=== PATIENT | male | born 1995 | race Caucasian/White ===

== ENCOUNTER 2019-08-15 19:16 | Emergency (ER) | payer BC, MEDICAID ==
--- NOTE | 2019-08-15 19:56 | EDM.PDOC ---
ED HPI GENERAL MEDICAL PROBLEM - General Chief Complaint: Back Pain or Injury Stated Complaint: LOWER BACK PAIN Time Seen by Provider: 08/15/19 19:46 - History of Present Illness INITIAL COMMENTS - FREE TEXT/NARRATIVE: 23-year-old male presents the emergency room with back pain. This started this morning the patient was put on his pants and developed pain in his low back. No other associated trauma. The patient has had problems with his low back in the past there is always been concerned for an old vertebral fracture that is been identified on prior x-rays. But the patient has not had any trauma to his back in quite some time. Patient is no loss of bowel or bladder control no numbness or tingling down his legs. Treatments HARBORMASTER: Reports: NSAIDS Other Treatments HARBORMASTER: Motrin around 1100- "3 of the tablets" Lower Back Pain Score (Numeric/FACES): 6 - Related Data Allergies Allergy/AdvReac Type Severity Reaction Status Date / Time No Known Allergies Allergy Verified 08/15/19 19:33 Home Meds: Home Meds Cyclobenzaprine [Flexeril] 10 mg PO BEDTIME #5 tab 08/15/19 [Rx] Naproxen [Naprosyn] 500 mg PO Q12HR #30 tab 08/15/19 [Rx] Past Medical History Musculoskeletal History: Reports: Back Pain, Chronic - Infectious Disease History Infectious Disease History: Reports: Chicken Pox - Past Surgical History HEENT Surgical History: Reports: Adenoidectomy, Tonsillectomy Social & Family History - Family History Family Medical History: Noncontributory - Tobacco Use Smoking Status *Q: Never Smoker - Caffeine Use Caffeine Use: Reports: Coffee, Energy Drinks - Recreational Drug Use Recreational Drug Use: No ED ROS GENERAL - Review of Systems Review Of Systems: See Below Constitutional: Reports: No Symptoms HEENT: Reports: No Symptoms Respiratory: Reports: No Symptoms Cardiovascular: Reports: No Symptoms GI/Abdominal: Reports: No Symptoms : Reports: No Symptoms Musculoskeletal: Reports: Back Pain ED EXAM,LOWER BACK PAIN/INJURY - Physical Exam Exam: See Below Exam Limited By: No Limitations General Appearance: Alert, No Apparent Distress Head: Atraumatic, Normocephalic Neck: Normal Inspection, Supple, Non-Tender, Full Range of Motion. No: Limited Range of Motion, Lymphadenopathy (L), Lymphadenopathy (R), Tender Lateral, Tender Midline, Thyromegaly Respiratory/Chest: No Respiratory Distress, Lungs Clear, Normal Breath Sounds Cardiovascular: Regular Rate, Rhythm, No Edema, No Murmur GI/Abdominal: Normal Bowel Sounds, Soft, Non-Tender Back Exam: Normal Inspection, Other (His discomfort is in the LS area. Straight leg raises are normal). No: CVA Tenderness (R), Muscle Spasm, Vertebral Tenderness Neurological: Alert, Normal Mood/Affect Course - Vital Signs Last Recorded V/S: Last Vital Signs Temp 36.8 C 08/15/19 19:28 Pulse 107 H 08/15/19 19:28 Resp 18 08/15/19 19:28 BP 138/95 H 08/15/19 19:28 Pulse Ox 100 08/15/19 19:28 - Re-Assessments/Exams Free Text/Narrative Re-Assessment/Exam: 08/15/19 20:07 Lumbosacral strain will treat with nonsteroidals and a gentle dose of muscle relaxants he will receive a dose of Toradol before he leaves Departure - Departure Time of Disposition: 20:10 Disposition: Home, Self-Care 01 Clinical Impression: Lumbosacral strain - Discharge Information Prescriptions: Naproxen [Naprosyn] 500 mg PO Q12HR #30 tab Cyclobenzaprine [Flexeril] 10 mg PO BEDTIME #5 tab Additional Instructions: Return to the emergency room with any questions or worsening symptoms. Follow-up in the hospital clinic as needed [id number]. Take the Flexeril as directed. Use the Naprosyn for at least 10 days and then as needed. Sepsis Event Note - Evaluation Sepsis Screening Result: No Definite Risk - Focused Exam Vital Signs: Vital Signs Temp Pulse Resp BP Pulse Ox 08/15/19 19:28 36.8 C 107 H 18 138/95 H 100 Date Exam was Performed: 08/15/19 Time Exam was Performed: 19:46
[2019-08-15] MEDS ORDERED: Ketorolac 30 MG/ML SDV IM ONE (19:57)
== END 2019-08-15 20:25 | disposition home or self-care (01) ==
LOC: JD.ED 19:16
DX: S39.012A Strain of muscle, fascia and tendon of lower back, initial encounter (principal); X50.1XXA Overexertion from prolonged static or awkward postures, initial encounter; Y93.89 Activity, other specified
CPT/HCPCS: 96372; 99283; J1885